=== PATIENT | male | born 1955 | race Caucasian/White ===

== ENCOUNTER 2024-07-05 19:40 | Inpatient (IN) | payer MEDICARE ==
[~2024-07-05] VITALS: Ht 177.8 cm; Wt 78.7 kg
[2024-07-05 20:25] LABS: BASO # 0.1 10^3/uL (0.0-0.2); BASO % 0.9 % (0.0-1.0); EOS # 0.3 10^3/uL (0.0-0.5); EOS % 4.7 % (0.0-3.0); HEMATOCRIT 38.1 % (42.0-52.0); HEMOGLOBIN 12.6 g/dl (13.5-17.5); LYMPH # 2.7 10^3/uL (1.5-5.0); LYMPH % 39.9 % (24.0-44.0); MEAN CORPUSCULAR HEMOGLOBIN 27.9 pg (27.0-33.0); MEAN CORPUSCULAR HGB CONC 33.1 g/dl (32.0-36.5); MEAN CORPUSCULAR VOLUME 84.3 fl (80.0-96.0); MONO # 0.3 10^3/uL (0.0-0.8); NEUTROPHILS # 3.4 10^3/uL (1.5-8.5); NEUTROPHILS % 50.2 % (36.0-66.0); PLATELET COUNT, AUTOMATED 240 10^3/uL (150-450); RED BLOOD COUNT 4.52 10^6/uL (4.30-6.10); WHITE BLOOD COUNT 6.8 10^3/uL (4.0-10.0)
[2024-07-05 20:47] LABS: CK-MB VALUE MASS 1.2 NG/ML (<3.6); LIPASE 35 U/L (12-53)
[2024-07-05 20:48] LABS: CPK CREATINE PHOSPHOKINASE 80 U/L (46-171)
[2024-07-05 20:51] LABS: THYROID STIMULATING HORMONE 2.664 uIU/ML (0.55-4.78)
[2024-07-05 21:12] LABS: ALBUMIN 3.3 G/DL (3.2-5.2); ALKALINE PHOSPHATASE 59 U/L (40-129); ALT/SGPT < 9 U/L (7.0-40); AST/SGOT 13 U/L (<34); BILIRUBIN,DIRECT 0.2 MG/DL (<0.4); BILIRUBIN,TOTAL 0.6 MG/DL (0.3-1.2); BLOOD UREA NITROGEN 12 MG/DL (9-23); CALCIUM LEVEL 7.4 MG/DL (8.3-10.6); CARBON DIOXIDE LEVEL 24 MMOL/L (20-31); CHLORIDE LEVEL 108 MMOL/L (98-107); CREATININE FOR GFR 0.73 MG/DL (0.70-1.30); GLOMERULAR FILTRATION RATE > 60.0 (>49); GLUCOSE, FASTING 99 MG/DL (74-106); POTASSIUM SERUM 3.3 MMOL/L (3.5-5.1); SODIUM LEVEL 141 MMOL/L (136-145); TOTAL PROTEIN 5.7 G/DL (5.7-8.2)
[2024-07-05] MEDS: POTASSIUM CHLORIDE 10% LIQ 20MEQ/15ML UDC PO ONE (21:29)
[2024-07-05] MEDS: NS (Normal Saline) 0.9% 1,000 ML IV ONE ×2 (21:50→23:38)
[2024-07-05 23:27] LABS: PROLACTIN 18.98 NG/ML (2.1-17.7)
[2024-07-05] MEDS: KETOROLAC 30 MG/ML 1ML VIAL IV ONE (23:38)
[2024-07-06 00:55] LABS: KETONE, URINE AUTO RFX NEGATIVE (NEGATIVE); LEUKOCYTE ESTERASE UR AUTO RFX NEGATIVE (NEGATIVE); MUCUS, URINE RFX SMALL (NEGATIVE); NITRITE, URINE AUTO RFX NEGATIVE (NEGATIVE); RBC, URINE AUTO RFX 0 /HPF (0-3); SQUAM EPITHELIAL CELL UR AURFX 0 /HPF (0-6); WBC, URINE AUTO RFX 0 /HPF (0-3)
[2024-07-06] MEDS: POTASSIUM CHLORIDE 10MEQ SR TABLET PO SCH (09:00)
[2024-07-06] MEDS ORDERED: HOME MED LIST COMPLETE! XX SCH (13:00)
[2024-07-06] MEDS ORDERED: MAALOX 30 ML SUSP *UDC PO PRN (13:40)
[2024-07-06] MEDS ORDERED: MOM 30ML SUSPENSION UDC PO PRN (13:40)
[2024-07-06 15:18] LABS: HEMATOCRIT 34.6 % (42.0-52.0)
[2024-07-06 15:49] LABS: MAGNESIUM LEVEL 1.8 MG/DL (1.8-2.4)
[2024-07-06 15:50] LABS: C REACTIVE PROTEIN QUANTITATIV 1.01 MG/DL (<1.0); PERCENT SATURATION 22.4 % (19.7-50.0)
[2024-07-06 15:52] LABS: TOTAL 25(OH) VITAMIN D 22.9 NG/ML (20.0-100.0)
[2024-07-06] MEDS: ACETAMINOPHEN 325 MG TAB PO PRN (16:25)
[2024-07-06 18:29] VITALS: BP 131/81; TEMP 97.7; O2SAT 99
[2024-07-06 20:27] VITALS: BP 123/80; TEMP 97.9; O2SAT 94
[2024-07-07 04:28] VITALS: BP 122/80; TEMP 97.2; O2SAT 98
[2024-07-07 07:35] LABS: BLOOD UREA NITROGEN 17 MG/DL (9-23); CALCIUM LEVEL 8.1 MG/DL (8.3-10.6); CARBON DIOXIDE LEVEL 26 MMOL/L (20-31); CHLORIDE LEVEL 108 MMOL/L (98-107); CREATININE FOR GFR 0.79 MG/DL (0.70-1.30); GLOMERULAR FILTRATION RATE > 60.0 (>49); GLUCOSE, FASTING 84 MG/DL (74-106); MAGNESIUM LEVEL 1.9 MG/DL (1.8-2.4); POTASSIUM SERUM 4.5 MMOL/L (3.5-5.1); SODIUM LEVEL 140 MMOL/L (136-145)
[2024-07-07] MEDS: ENOXAPARIN 40MG/0.4ML SYRINGE (J1650 PER 10MG) SC SCH (08:45)
[2024-07-07] MEDS ORDERED: CALCIUM CARBONATE 500 MG CHEW U/D PO PRN (09:00)
[2024-07-07] MEDS: GASTROGRAFIN SOLUTION 30ML PO SCH (10:22)
[2024-07-07 11:00] VITALS: BP 110/72; TEMP 97.2; O2SAT 97
[2024-07-07] MEDS ORDERED: ISOVUE-370 76% 100ML VIAL As Ordered ONE (11:56)
[2024-07-07 12:08] VITALS: BP 110/72; TEMP 97.2; O2SAT 97
[2024-07-07 20:41] VITALS: BP 122/78; TEMP 96.8; O2SAT 96
[2024-07-08] VITALS (11 sets, daily range): BP systolic 101–125; BP diastolic 65–78; TEMP 97–97.7; O2SAT 96–98
[2024-07-08] MEDS: FERROUS SULFATE 325MG TAB PO SCH (08:35)
[2024-07-08 12:21] LABS: IONIZED CALCIUM 4.6 MG/DL (4.5-5.3)
[2024-07-08] MEDS ORDERED: PROHANCE 279.3MG/ML 5ML VIAL As Ordered ONE (12:44)
[2024-07-08 12:52] LABS: PROLACTIN 22.64 NG/ML (2.1-17.7)
[2024-07-08 12:53] LABS: THYROXINE (T4) 4.8 UG/DL (4.5-10.9)
[2024-07-08 12:54] LABS: LUTEINIZING HORMONE 0.3 mIU/ML (1.5-9.3); THYROID STIMULATING HORMONE 2.698 uIU/ML (0.55-4.78)
[2024-07-08 12:57] LABS: FREE THYROXINE INDEX 1.5 % (1.4-3.8); T UPTAKE 31.6 % (22.5-37.0)
[2024-07-08 13:00] LABS: TESTOSTERONE < 7 NG/DL (241-827)
[2024-07-08 14:23] LABS: FREE T4 0.64 NG/DL (0.89-1.76)
[2024-07-08] MEDS: dexAMETHasone 20MG/5ML VIAL IV STA (15:37)
[2024-07-08] MEDS: NS (Normal Saline) 0.9% 1,000 ML IV ONE (15:44)
[2024-07-08] MEDS: MIDODRINE 5 MG TAB PO ONE (15:44)
[2024-07-08] MEDS: KETOROLAC 30 MG/ML 1ML VIAL IV ONE (16:41)
[2024-07-08] MEDS: PERCOCET 5MG/325MG TAB PO ONE (16:42)
[2024-07-09 05:01] VITALS: BP 111/72; TEMP 97.7; O2SAT 96
[2024-07-09] MEDS: COSYNTROPIN 0.25 MG/ML 1ML VIAL IV ONE (05:26)
[2024-07-09 06:16] LABS: BLOOD UREA NITROGEN 22 MG/DL (9-23); CALCIUM LEVEL 8.6 MG/DL (8.3-10.6); CARBON DIOXIDE LEVEL 23 MMOL/L (20-31); CHLORIDE LEVEL 111 MMOL/L (98-107); CREATININE FOR GFR 0.85 MG/DL (0.70-1.30); GLOMERULAR FILTRATION RATE > 60.0 (>49); GLUCOSE, FASTING 125 MG/DL (74-106); POTASSIUM SERUM 5.1 MMOL/L (3.5-5.1); SODIUM LEVEL 143 MMOL/L (136-145)
[2024-07-09 06:51] LABS: BASO % 0.2 % (0.0-1.0); HEMATOCRIT 36.5 % (42.0-52.0); HEMOGLOBIN 12.1 g/dl (13.5-17.5); MEAN CORPUSCULAR HEMOGLOBIN 27.9 pg (27.0-33.0); MEAN CORPUSCULAR HGB CONC 33.2 g/dl (32.0-36.5); MEAN CORPUSCULAR VOLUME 84.3 fl (80.0-96.0); MONO # 0.1 10^3/uL (0.0-0.8); MONO % 1.6 % (2.0-8.0); NEUTROPHILS # 5.3 10^3/uL (1.5-8.5); NEUTROPHILS % 81.9 % (36.0-66.0); PLATELET COUNT, AUTOMATED 267 10^3/uL (150-450); RED BLOOD COUNT 4.33 10^6/uL (4.30-6.10); WHITE BLOOD COUNT 6.5 10^3/uL (4.0-10.0)
[2024-07-09 07:00] VITALS: BP 113/67; TEMP 97.3
[2024-07-09 07:19] LABS: BLOOD UREA NITROGEN 22 MG/DL (9-23); CALCIUM LEVEL 8.5 MG/DL (8.3-10.6); CARBON DIOXIDE LEVEL 23 MMOL/L (20-31); CHLORIDE LEVEL 110 MMOL/L (98-107); CREATININE FOR GFR 0.81 MG/DL (0.70-1.30); GLOMERULAR FILTRATION RATE > 60.0 (>49); GLUCOSE, FASTING 120 MG/DL (74-106); SODIUM LEVEL 141 MMOL/L (136-145)
[2024-07-09] MEDS ORDERED: dexAMETHasone 20MG/5ML VIAL IV SCH (09:00)
[2024-07-09] MEDS ORDERED: HYDR10VL IV (09:08)
[2024-07-09] MEDS ORDERED: SYNT50TA IV (09:08)
[2024-07-09] MEDS: HYDROCORTISONE 100MG/2ML VIAL IV SCH (09:22)
[2024-07-09] MEDS: LEVOTHYROXINE 100MCG (0.1MG) 5ML SDV PF (SOLUTION FORM) IV SCH (10:36)
[2024-07-09] MEDS ORDERED: NALOXONE INJ 0.4MG/1ML VIAL IV PRN (14:05)
[2024-07-09] MEDS: LR 1,000 ML IV ONE (14:31)
[2024-07-09] MEDS: MORPHINE 10 MG/ML 1ML VIAL IV ONE (14:33)
[2024-07-09] MEDS: PERCOCET 5MG/325MG TAB PO PRN (19:55)
[2024-07-09 21:19] VITALS: BP 113/63; TEMP 97.7
[2024-07-10 04:00] VITALS: BP 113/71; TEMP 97.5; O2SAT 96
[2024-07-10 07:35] LABS: EOS % 0.1 % (0.0-3.0); HEMATOCRIT 32.9 % (42.0-52.0); HEMOGLOBIN 10.5 g/dl (13.5-17.5); LYMPH % 12.2 % (24.0-44.0); MEAN CORPUSCULAR HEMOGLOBIN 27.1 pg (27.0-33.0); MEAN CORPUSCULAR HGB CONC 31.9 g/dl (32.0-36.5); MEAN CORPUSCULAR VOLUME 84.8 fl (80.0-96.0); MONO # 0.2 10^3/uL (0.0-0.8); NEUTROPHILS # 7.2 10^3/uL (1.5-8.5); NEUTROPHILS % 84.9 % (36.0-66.0); PLATELET COUNT, AUTOMATED 237 10^3/uL (150-450); RED BLOOD COUNT 3.88 10^6/uL (4.30-6.10); WHITE BLOOD COUNT 8.5 10^3/uL (4.0-10.0)
[2024-07-10 07:56] LABS: BLOOD UREA NITROGEN 23 MG/DL (9-23); CALCIUM LEVEL 8.3 MG/DL (8.3-10.6); CARBON DIOXIDE LEVEL 25 MMOL/L (20-31); CHLORIDE LEVEL 113 MMOL/L (98-107); GLOMERULAR FILTRATION RATE > 60.0 (>49); GLUCOSE, FASTING 142 MG/DL (74-106); POTASSIUM SERUM 4.5 MMOL/L (3.5-5.1); SODIUM LEVEL 146 MMOL/L (136-145)
[2024-07-10 12:00] VITALS: BP 104/70; TEMP 97.7; O2SAT 96
[2024-07-10] MEDS: BISACODYL 5MG TAB PO ONE (15:20)
[2024-07-10] MEDS: GOLYTELY SOLN 4000 ML BTL PO ONE (17:23)
[2024-07-10 21:51] VITALS: BP 109/71; TEMP 97.9; O2SAT 96
[2024-07-11 04:37] VITALS: BP 111/79; TEMP 97.7; O2SAT 96
[2024-07-11] MEDS: MAGNESIUM CITRATE 300ML BTL PO ONE ×2 (05:31→09:13)
[2024-07-11 06:13] LABS: EOS % 0.3 % (0.0-3.0); HEMATOCRIT 30.6 % (42.0-52.0); LYMPH # 1.6 10^3/uL (1.5-5.0); LYMPH % 20.1 % (24.0-44.0); MEAN CORPUSCULAR HEMOGLOBIN 27.2 pg (27.0-33.0); MEAN CORPUSCULAR HGB CONC 32.7 g/dl (32.0-36.5); MEAN CORPUSCULAR VOLUME 83.2 fl (80.0-96.0); MONO # 0.2 10^3/uL (0.0-0.8); MONO % 2.7 % (2.0-8.0); NEUTROPHILS # 5.9 10^3/uL (1.5-8.5); NEUTROPHILS % 76.4 % (36.0-66.0); PLATELET COUNT, AUTOMATED 234 10^3/uL (150-450); RED BLOOD COUNT 3.68 10^6/uL (4.30-6.10); WHITE BLOOD COUNT 7.7 10^3/uL (4.0-10.0)
[2024-07-11 06:40] LABS: BLOOD UREA NITROGEN 20 MG/DL (9-23); CALCIUM LEVEL 7.9 MG/DL (8.3-10.6); CARBON DIOXIDE LEVEL 26 MMOL/L (20-31); CHLORIDE LEVEL 108 MMOL/L (98-107); CREATININE FOR GFR 0.67 MG/DL (0.70-1.30); GLOMERULAR FILTRATION RATE > 60.0 (>49); GLUCOSE, FASTING 110 MG/DL (74-106); POTASSIUM SERUM 3.9 MMOL/L (3.5-5.1); SODIUM LEVEL 142 MMOL/L (136-145)
[2024-07-11 09:00] VITALS: BP 132/92; TEMP 97.7
[2024-07-11 09:53] LABS: ANA SCREEN, IFA NEGATIVE (NEGATIVE)
[2024-07-11 10:43] LABS: INSULIN LEVEL 8.7 uIU/mL (<=18.4)
[2024-07-11 12:00] VITALS: BP 137/90; TEMP 97.3; O2SAT 96
[2024-07-11 16:06] LABS: ALDOLASE 3.1 U/L (< OR = 8.1)
[2024-07-11 20:14] VITALS: BP 133/88; TEMP 98.1; O2SAT 99
[2024-07-12 04:11] VITALS: BP 127/84; TEMP 97.7; O2SAT 98
[2024-07-12 07:13] LABS: BASO % 0.1 % (0.0-1.0); HEMATOCRIT 33.1 % (42.0-52.0); HEMOGLOBIN 10.8 g/dl (13.5-17.5); LYMPH # 1.4 10^3/uL (1.5-5.0); LYMPH % 17.3 % (24.0-44.0); MEAN CORPUSCULAR HEMOGLOBIN 27.8 pg (27.0-33.0); MEAN CORPUSCULAR HGB CONC 32.6 g/dl (32.0-36.5); MEAN CORPUSCULAR VOLUME 85.3 fl (80.0-96.0); MONO # 0.4 10^3/uL (0.0-0.8); NEUTROPHILS # 6.2 10^3/uL (1.5-8.5); NEUTROPHILS % 76.9 % (36.0-66.0); PLATELET COUNT, AUTOMATED 257 10^3/uL (150-450); RED BLOOD COUNT 3.88 10^6/uL (4.30-6.10)
[2024-07-12 07:35] LABS: BLOOD UREA NITROGEN 25 MG/DL (9-23); CALCIUM LEVEL 7.6 MG/DL (8.3-10.6); CARBON DIOXIDE LEVEL 27 MMOL/L (20-31); CHLORIDE LEVEL 109 MMOL/L (98-107); CREATININE FOR GFR 0.73 MG/DL (0.70-1.30); GLOMERULAR FILTRATION RATE > 60.0 (>49); GLUCOSE, FASTING 132 MG/DL (74-106); POTASSIUM SERUM 3.6 MMOL/L (3.5-5.1); SODIUM LEVEL 144 MMOL/L (136-145)
[2024-07-12 12:53] VITALS: BP 124/82; TEMP 97.7; O2SAT 97
[2024-07-12 16:27] LABS: HUMAN GROWTH HORMONE < 0.1 ng/mL (<=7.1)
[2024-07-12 20:20] VITALS: BP 124/82; TEMP 97.7; O2SAT 97
[2024-07-12 23:43] LABS: GASTRIN 15 pg/mL (<=100)
[2024-07-13 04:37] VITALS: BP 129/77; TEMP 97.5; O2SAT 97
[2024-07-13 06:51] LABS: BASO % 0.2 % (0.0-1.0); EOS % 0.4 % (0.0-3.0); HEMATOCRIT 32.7 % (42.0-52.0); HEMOGLOBIN 10.8 g/dl (13.5-17.5); LYMPH # 1.4 10^3/uL (1.5-5.0); LYMPH % 16.8 % (24.0-44.0); MEAN CORPUSCULAR HEMOGLOBIN 27.6 pg (27.0-33.0); MEAN CORPUSCULAR VOLUME 83.6 fl (80.0-96.0); MONO # 0.4 10^3/uL (0.0-0.8); MONO % 4.8 % (2.0-8.0); NEUTROPHILS # 6.5 10^3/uL (1.5-8.5); NEUTROPHILS % 75.6 % (36.0-66.0); PLATELET COUNT, AUTOMATED 263 10^3/uL (150-450); RED BLOOD COUNT 3.91 10^6/uL (4.30-6.10); WHITE BLOOD COUNT 8.6 10^3/uL (4.0-10.0)
[2024-07-13 07:14] LABS: BLOOD UREA NITROGEN 19 MG/DL (9-23); CALCIUM LEVEL 7.4 MG/DL (8.3-10.6); CARBON DIOXIDE LEVEL 25 MMOL/L (20-31); CHLORIDE LEVEL 106 MMOL/L (98-107); CREATININE FOR GFR 0.61 MG/DL (0.70-1.30); GLOMERULAR FILTRATION RATE > 60.0 (>49); GLUCOSE, FASTING 125 MG/DL (74-106); POTASSIUM SERUM 3.4 MMOL/L (3.5-5.1); SODIUM LEVEL 144 MMOL/L (136-145)
[2024-07-13] MEDS: HYDROCORTISONE 100MG/2ML VIAL IV SCH (09:25)
[2024-07-13 12:41] VITALS: BP 139/89; TEMP 97.7; O2SAT 98
[2024-07-13 16:38] LABS: ADRENOCORTICOTROPHIC HORMONE < 5 pg/mL (6-50)
[2024-07-13 19:38] VITALS: BP 109/79; TEMP 97.7; O2SAT 97
[2024-07-14 04:33] VITALS: BP 110/75; TEMP 96.4; O2SAT 97
[2024-07-14 07:19] LABS: BASO % 0.1 % (0.0-1.0); EOS % 0.4 % (0.0-3.0); LYMPH # 1.8 10^3/uL (1.5-5.0); LYMPH % 18.7 % (24.0-44.0); MEAN CORPUSCULAR HEMOGLOBIN 27.8 pg (27.0-33.0); MEAN CORPUSCULAR HGB CONC 32.4 g/dl (32.0-36.5); MEAN CORPUSCULAR VOLUME 86.1 fl (80.0-96.0); MONO # 0.6 10^3/uL (0.0-0.8); MONO % 6.5 % (2.0-8.0); NEUTROPHILS # 6.7 10^3/uL (1.5-8.5); NEUTROPHILS % 72.2 % (36.0-66.0); PLATELET COUNT, AUTOMATED 267 10^3/uL (150-450); RED BLOOD COUNT 3.95 10^6/uL (4.30-6.10); WHITE BLOOD COUNT 9.4 10^3/uL (4.0-10.0)
[2024-07-14 07:51] LABS: BLOOD UREA NITROGEN 26 MG/DL (9-23); CALCIUM LEVEL 7.3 MG/DL (8.3-10.6); CARBON DIOXIDE LEVEL 23 MMOL/L (20-31); CHLORIDE LEVEL 111 MMOL/L (98-107); CREATININE FOR GFR 0.83 MG/DL (0.70-1.30); GLOMERULAR FILTRATION RATE > 60.0 (>49); GLUCOSE, FASTING 129 MG/DL (74-106); SODIUM LEVEL 147 MMOL/L (136-145)
[2024-07-14 19:57] VITALS: BP 109/75; TEMP 97.7; O2SAT 97
[2024-07-15 04:46] VITALS: BP 115/66; TEMP 96.8; O2SAT 97
[2024-07-15 07:03] LABS: BASO % 0.4 % (0.0-1.0); EOS # 0.1 10^3/uL (0.0-0.5); EOS % 0.7 % (0.0-3.0); HEMATOCRIT 33.5 % (42.0-52.0); HEMOGLOBIN 11.1 g/dl (13.5-17.5); LYMPH % 20.1 % (24.0-44.0); MEAN CORPUSCULAR HEMOGLOBIN 28.2 pg (27.0-33.0); MEAN CORPUSCULAR HGB CONC 33.1 g/dl (32.0-36.5); MONO # 0.6 10^3/uL (0.0-0.8); MONO % 5.4 % (2.0-8.0); NEUTROPHILS # 7.2 10^3/uL (1.5-8.5); NEUTROPHILS % 70.5 % (36.0-66.0); PLATELET COUNT, AUTOMATED 270 10^3/uL (150-450); RED BLOOD COUNT 3.94 10^6/uL (4.30-6.10); WHITE BLOOD COUNT 10.2 10^3/uL (4.0-10.0)
[2024-07-15 07:31] LABS: BLOOD UREA NITROGEN 26 MG/DL (9-23); CALCIUM LEVEL 7.2 MG/DL (8.3-10.6); CARBON DIOXIDE LEVEL 25 MMOL/L (20-31); CHLORIDE LEVEL 113 MMOL/L (98-107); CREATININE FOR GFR 0.65 MG/DL (0.70-1.30); GLOMERULAR FILTRATION RATE > 60.0 (>49); GLUCOSE, FASTING 115 MG/DL (74-106); POTASSIUM SERUM 3.4 MMOL/L (3.5-5.1); SODIUM LEVEL 147 MMOL/L (136-145)
[2024-07-15 12:00] VITALS: BP 114/66; TEMP 96.8
[2024-07-15] MEDS ORDERED: GOLYTELY SOLN 4000 ML BTL PO ONE (16:00)
[2024-07-15] MEDS ORDERED: BISACODYL 5MG TAB PO ONE (17:00)
[2024-07-15 19:55] VITALS: BP 122/73; TEMP 97; O2SAT 98
[2024-07-15 23:55] VITALS: BP 121/74; TEMP 97.7; O2SAT 98
[2024-07-16] MEDS ORDERED: MAGNESIUM CITRATE 300ML BTL PO ONE (05:00)
== END 2024-07-16 01:05 | disposition short-term general hospital (02) | DRG 644 ==
LOC: M ED 19:40 → M ED INP 07-06 13:38 → M MS5PR 07-06 18:20
PROVIDERS: ADMIT Student in an Organized Health Care Education/Training Program; ATTEND Student in an Organized Health Care Education/Training Program
DX: E23.0 Hypopituitarism (principal); E22.1 Hyperprolactinemia; E46 Unspecified protein-calorie malnutrition; K52.9 Noninfective gastroenteritis and colitis, unspecified; E87.6 Hypokalemia; E83.51 Hypocalcemia; D35.2 Benign neoplasm of pituitary gland; D64.9 Anemia, unspecified; R53.1 Weakness; R53.81 Other malaise; M47.814 Spondylosis without myelopathy or radiculopathy, thoracic region; R63.4 Abnormal weight loss; R20.2 Paresthesia of skin; M25.561 Pain in right knee; M25.562 Pain in left knee; M79.605 Pain in left leg; M79.604 Pain in right leg; M47.816 Spondylosis without myelopathy or radiculopathy, lumbar region; D32.9 Benign neoplasm of meninges, unspecified; Z74.01 Bed confinement status; Z99.3 Dependence on wheelchair

== ENCOUNTER 2024-11-13 14:21 | Inpatient (IN) | payer MEDICARE, MEDICAID ==
[~2024-11-13] VITALS: Ht 177.8 cm; Wt 77.3 kg
[~2024-11-13 14:21] MED LIST: HYDR10VL IV; SYNT50TA IV
[2024-11-13 16:03] LABS: BASO # 0.0 10^3/uL (0.0-0.2); BASO % 0.5 % (0.0-1.0); EOS # 0.2 10^3/uL (0.0-0.5); EOS % 1.9 % (0.0-3.0); LYMPH # 2.5 10^3/uL (1.5-5.0); LYMPH % 31.7 % (24.0-44.0); MONO # 0.5 10^3/uL (0.0-0.8); MONO % 6.1 % (2.0-8.0); NEUTROPHILS # 4.6 10^3/uL (1.5-8.5); NEUTROPHILS % 59.0 % (36.0-66.0); PLATELET COUNT, AUTOMATED 241 10^3/uL (150-450)
[2024-11-13 16:25] LABS: CALCIUM LEVEL 9.0 MG/DL (8.3-10.6); CARBON DIOXIDE LEVEL 26 MMOL/L (20-31); CHLORIDE LEVEL 106 MMOL/L (98-107); CREATININE FOR GFR 0.84 MG/DL (0.70-1.30); GLOMERULAR FILTRATION RATE > 90.0 (>49); POTASSIUM SERUM 3.8 MMOL/L (3.5-5.1); SODIUM LEVEL 142 MMOL/L (136-145)
[2024-11-13 18:59] LABS: CK-MB VALUE MASS < 1.0 NG/ML (<3.6); MAGNESIUM LEVEL 1.9 MG/DL (1.8-2.4)
[2024-11-13 19:01] LABS: CPK CREATINE PHOSPHOKINASE 43 U/L (46-171)
[2024-11-13 19:03] LABS: FREE T4 0.96 NG/DL (0.89-1.76)
[2024-11-13 19:53] LABS: CK-MB VALUE MASS 1.1 NG/ML (<3.6)
[2024-11-13 19:55] LABS: CPK CREATINE PHOSPHOKINASE 52 U/L (46-171); MB/CK RELATIVE INDEX 2.11 (< OR =4)
[2024-11-13] MEDS ORDERED: LEVO50TA5 PO (21:27)
[2024-11-13] MEDS ORDERED: HYDR-4467 PO (21:27)
[2024-11-13] MEDS ORDERED: ERGO500029 PO (21:27)
[2024-11-13] MEDS ORDERED: HOME MED LIST COMPLETE! XX SCH (21:30)
[2024-11-14] MEDS ORDERED: MOM 30 ML SUSPENSION UDC PO PRN (00:15)
[2024-11-14] MEDS: HYDROCORTISONE 5 MG TABLET PO SCH (01:11)
[2024-11-14] MEDS: LEVOTHYROXINE 50 MCG TABLET (0.05 MG) PO SCH (06:18)
[2024-11-14] MEDS: DOCUSATE SODIUM 100 MG CAPSULE PO SCH (07:59)
[2024-11-14] MEDS: HEPARIN SOD 5000 UNITS/ML 1 ML VIAL/SYRINGE SC SCH (07:59)
[2024-11-14 15:58] VITALS: BP 127/85; TEMP 97.7; O2SAT 99
[2024-11-14] MEDS: ACETAMINOPHEN 325 MG TAB PO PRN (16:15)
[2024-11-14 21:00] VITALS: BP 140/80; TEMP 97.5; O2SAT 98
[2024-11-15 03:48] VITALS: BP 113/73; TEMP 97.3; O2SAT 99
[2024-11-15 08:46] VITALS: BP 145/99; TEMP 97.5; O2SAT 98
[2024-11-15 13:00] VITALS: BP 120/80; TEMP 97.9; O2SAT 98
[2024-11-15 20:16] VITALS: BP 120/81; TEMP 97.9; O2SAT 98
[2024-11-15] MEDS: CHLORASEPTIC SPRAY MT PRN (21:51)
[2024-11-16 03:14] VITALS: BP 121/81; TEMP 97.5; O2SAT 97
[2024-11-16] MEDS: CEPACOL LOZENGE PO PRN (09:59)
[2024-11-16 20:00] VITALS: BP 121/80; TEMP 97.9; O2SAT 97
[2024-11-17 04:58] VITALS: BP 124/78; TEMP 97.7; O2SAT 96
[2024-11-17 06:33] LABS: BASO # 0.1 10^3/uL (0.0-0.2); BASO % 0.9 % (0.0-1.0); EOS # 0.2 10^3/uL (0.0-0.5); EOS % 2.4 % (0.0-3.0); LYMPH # 2.6 10^3/uL (1.5-5.0); LYMPH % 39.1 % (24.0-44.0); MONO # 0.6 10^3/uL (0.0-0.8); MONO % 8.6 % (2.0-8.0); NEUTROPHILS # 3.2 10^3/uL (1.5-8.5); NEUTROPHILS % 48.1 % (36.0-66.0); PLATELET COUNT, AUTOMATED 261 10^3/uL (150-450)
[2024-11-17 07:07] LABS: ALT/SGPT 23.0 U/L (7.0-40); AST/SGOT 16.0 U/L (<34); CALCIUM LEVEL 8.8 MG/DL (8.3-10.6); CARBON DIOXIDE LEVEL 27.0 MMOL/L (20-31); CHLORIDE LEVEL 105.0 MMOL/L (98-107); CREATININE FOR GFR 0.96 MG/DL (0.70-1.30); GLOMERULAR FILTRATION RATE 86.6 (>49); POTASSIUM SERUM 4.5 MMOL/L (3.5-5.1); SODIUM LEVEL 144.0 MMOL/L (136-145)
[2024-11-17 12:00] VITALS: BP 122/79; TEMP 97.3; O2SAT 97
[2024-11-17] MEDS ORDERED: BENZ1LOZ9 PO (12:25)
[2024-11-17 14:48] VITALS: BP_SYST 103; BP_SYST 123; BP_DIAS 73; BP_DIAS 78
[2024-11-17] MEDS: HYDROCORTISONE 100 MG/2 ML VIAL IV ONE (16:00)
[2024-11-17] MEDS ORDERED: HYDROCORTISONE 10 MG TAB PO ONE (17:00)
[2024-11-17 20:45] VITALS: BP 108/72; TEMP 97.9; O2SAT 95
[2024-11-18 05:17] VITALS: BP 124/85; TEMP 97.7; O2SAT 96
[2024-11-18] MEDS: HYDROCORTISONE 10 MG TAB PO SCH (09:01)
[2024-11-18 12:00] VITALS: BP 121/81; TEMP 97.5; O2SAT 96
[2024-11-18 20:45] VITALS: BP 109/79; TEMP 97.9; O2SAT 94
[2024-11-19 04:21] VITALS: BP 132/81; TEMP 97.5; O2SAT 96
[2024-11-19] MEDS: LEVOTHYROXINE 75 MCG TABLET (0.075 MG) PO SCH (05:33)
[2024-11-19] MEDS: HYDROCORTISONE 10 MG TAB PO SCH ×2 (08:44→14:14)
[2024-11-19 12:00] VITALS: BP 113/77; TEMP 97.7; O2SAT 98
[2024-11-19 20:15] VITALS: BP 126/80; TEMP 97.9; O2SAT 98
[2024-11-20 04:34] VITALS: BP 132/84; TEMP 97.3; O2SAT 97
[2024-11-20 12:00] VITALS: BP 132/84; TEMP 97.3; O2SAT 96
[2024-11-20 12:51] VITALS: BP_SYST 103; BP_SYST 130; BP_DIAS 68; BP_DIAS 84; BP_DIAS 88
[2024-11-20 20:12] VITALS: BP 110/75; TEMP 97.2; O2SAT 97
[2024-11-21] MEDS: MAALOX 30 ML SUSP *UDC PO PRN (02:22)
[2024-11-21 04:00] VITALS: BP 117/77; TEMP 96.8; O2SAT 96
[2024-11-21] MEDS ORDERED: HYDR-4468 PO (10:12)
[2024-11-21] MEDS ORDERED: LEVO75TA4 PO (10:12)
[2024-11-21 12:00] VITALS: BP 117/77; TEMP 96.8; O2SAT 96
== END 2024-11-21 18:15 | disposition home health service (06) | DRG 644 ==
LOC: M ED 14:21 → EDBD 14:21 → M ED INP 11-14 00:15 → M MSPAV 11-14 13:50
PROVIDERS: ADMIT Student in an Organized Health Care Education/Training Program; ATTEND Internal Medicine Nephrology
PROC: B246ZZZ Ultrasonography of Right and Left Heart (ICD-10-PCS; principal; 2024-11-15)
DX: E23.0 Hypopituitarism (principal); E27.40 Unspecified adrenocortical insufficiency; D35.2 Benign neoplasm of pituitary gland; K52.9 Noninfective gastroenteritis and colitis, unspecified; R32 Unspecified urinary incontinence; R15.9 Full incontinence of feces; M79.18 Myalgia, other site; G89.29 Other chronic pain; R26.81 Unsteadiness on feet; E03.9 Hypothyroidism, unspecified; I95.1 Orthostatic hypotension; R29.6 Repeated falls; Z99.3 Dependence on wheelchair; Z79.890 Hormone replacement therapy; Z79.899 Other long term (current) drug therapy

== ENCOUNTER 2025-01-08 12:24 | Emergency (ER) | payer MEDICARE, MEDICAID ==
[~2025-01-08 12:24] MED LIST changes: +BENZ1LOZ9 PO; +ERGO500029 PO; +HYDR-4467 PO; +HYDR-4468 PO; +LEVO50TA5 PO; +LEVO75TA4 PO
[2025-01-08 12:48] LABS: BASO # 0.1 10^3/uL (0.0-0.2); BASO % 0.8 % (0.0-1.0); EOS # 0.2 10^3/uL (0.0-0.5); EOS % 2.0 % (0.0-3.0); LYMPH # 3.4 10^3/uL (1.5-5.0); LYMPH % 38.3 % (24.0-44.0); MONO # 0.5 10^3/uL (0.0-0.8); MONO % 5.6 % (2.0-8.0); NEUTROPHILS # 4.7 10^3/uL (1.5-8.5); NEUTROPHILS % 52.5 % (36.0-66.0); PLATELET COUNT, AUTOMATED 225 10^3/uL (150-450)
[2025-01-08 13:24] LABS: ALT/SGPT 33.0 U/L (7.0-40); AST/SGOT 13.0 U/L (<34); CALCIUM LEVEL 10.0 MG/DL (8.3-10.6); CARBON DIOXIDE LEVEL 27.0 MMOL/L (20-31); CHLORIDE LEVEL 106.0 MMOL/L (98-107); CREATININE FOR GFR 0.98 MG/DL (0.70-1.30); GLOMERULAR FILTRATION RATE 84.5 (>49); POTASSIUM SERUM 4.2 MMOL/L (3.5-5.1); SODIUM LEVEL 144.0 MMOL/L (136-145)
[2025-01-08] MEDS ORDERED: LEVO75TA4 PO (13:31)
[2025-01-08] MEDS ORDERED: HYDR-4468 PO ×2 (13:31)
[2025-01-08] MEDS ORDERED: HOME MED LIST COMPLETE! XX SCH (13:35)
[2025-01-08 15:31] VITALS: BP 119/74; O2SAT 97
[2025-01-08 15:52] VITALS: TEMP 97.2
== END 2025-01-08 17:00 | disposition home or self-care (01) ==
LOC: M ED 12:24 → EDBD 12:24 → M ED 17:00
DX: R42 Dizziness and giddiness (principal); I95.1 Orthostatic hypotension; Z79.899 Other long term (current) drug therapy

== ENCOUNTER 2025-03-04 13:19 | Inpatient (IN) | payer MEDICARE, MEDICAID ==
[~2025-03-04] VITALS: Ht 177.8 cm; Wt 85.8 kg
[2025-03-04 14:17] LABS: BASO # 0.1 10^3/uL (0.0-0.2); BASO % 0.6 % (0.0-1.0); EOS # 0.2 10^3/uL (0.0-0.5); EOS % 1.8 % (0.0-3.0); LYMPH # 4.6 10^3/uL (1.5-5.0); LYMPH % 41.9 % (24.0-44.0); MONO # 0.6 10^3/uL (0.0-0.8); MONO % 5.1 % (2.0-8.0); NEUTROPHILS # 5.5 10^3/uL (1.5-8.5); NEUTROPHILS % 50.1 % (36.0-66.0); PLATELET COUNT, AUTOMATED 302 10^3/uL (150-450)
[2025-03-04 14:26] LABS: ALT/SGPT 25.0 U/L (7.0-40); AST/SGOT 16.0 U/L (<34); CALCIUM LEVEL 9.7 MG/DL (8.3-10.6); CARBON DIOXIDE LEVEL 25.0 MMOL/L (20-31); CHLORIDE LEVEL 104.0 MMOL/L (98-107); CREATININE FOR GFR 0.96 MG/DL (0.70-1.30); GLOMERULAR FILTRATION RATE 86.6 (>49); POTASSIUM SERUM 3.5 MMOL/L (3.5-5.1); SODIUM LEVEL 140.0 MMOL/L (136-145)
[2025-03-04 17:06] LABS: FREE T4 1.02 NG/DL (0.89-1.76)
[2025-03-04] MEDS ORDERED: NS (Normal Saline) 0.9% 1,000 ML IV ONE (17:45)
[2025-03-04] MEDS: NS 0.9% IV STA (18:09)
[2025-03-04] MEDS: [UNRECOGNIZED DRUG - OTHER] IV STA (18:09)
[2025-03-04] MEDS: PIPERACILLIN/TAZOBACTAM SOD 4.5 GM in DEXTROSE 5% (D5W) ADV/MINI-BAG 50 ML IV ONE (18:49)
[2025-03-04 19:32] LABS: KETONE, URINE AUTO RFX NEGATIVE (NEGATIVE); LEUKOCYTE ESTERASE UR AUTO RFX NEGATIVE (NEGATIVE); MUCUS, URINE RFX SMALL (NEGATIVE); NITRITE, URINE AUTO RFX NEGATIVE (NEGATIVE); RBC, URINE AUTO RFX 12 /HPF (0-3); SQUAM EPITHELIAL CELL UR AURFX 0 /HPF (0-6); WBC, URINE AUTO RFX 3 /HPF (0-3)
[2025-03-04] MEDS: VANCOMYCIN HCL 1,000 MG, VIAL MATE ADAPTER 1 EACH in NS 250 ML IV ONE (19:49)
[2025-03-04] MEDS ORDERED: MOM 30 ML SUSPENSION UDC PO PRN (23:00)
[2025-03-04] MEDS ORDERED: ACETAMINOPHEN 325 MG TAB PO PRN (23:00)
[2025-03-04] MEDS ORDERED: MAALOX 30 ML SUSP *UDC PO PRN (23:00)
[2025-03-05] MEDS: HYDROCORTISONE 100 MG/2 ML VIAL IV ONE (00:28)
[2025-03-05 07:12] LABS: PLATELET COUNT, AUTOMATED 264 10^3/uL (150-450)
[2025-03-05 07:32] LABS: ALT/SGPT 22.0 U/L (7.0-40); AST/SGOT 13.0 U/L (<34); CALCIUM LEVEL 8.9 MG/DL (8.3-10.6); CARBON DIOXIDE LEVEL 22.0 MMOL/L (20-31); CHLORIDE LEVEL 106.0 MMOL/L (98-107); CREATININE FOR GFR 0.98 MG/DL (0.70-1.30); GLOMERULAR FILTRATION RATE 84.5 (>49); POTASSIUM SERUM 4.3 MMOL/L (3.5-5.1); SODIUM LEVEL 139.0 MMOL/L (136-145)
[2025-03-05] MEDS: DOCUSATE SODIUM 100 MG CAPSULE PO SCH (08:42)
[2025-03-05] MEDS ORDERED: HOME MED LIST COMPLETE! XX SCH (10:00)
[2025-03-05 13:53] VITALS: BP 134/73; TEMP 97.2; O2SAT 99
[2025-03-05 15:40] VITALS: BP 123/69; TEMP 96.6; O2SAT 97
[2025-03-05] MEDS: HYDROCORTISONE 100 MG/2 ML VIAL IV SCH (20:12)
[2025-03-05 20:27] VITALS: BP 121/66; TEMP 98.1; O2SAT 96
[2025-03-05 23:47] VITALS: BP 115/66; TEMP 97.2; O2SAT 96
[2025-03-06 03:40] VITALS: BP 128/69; TEMP 97.5; O2SAT 98
[2025-03-06] MEDS: LEVOTHYROXINE 75 MCG TABLET (0.075 MG) PO SCH (05:23)
[2025-03-06 08:02] VITALS: BP 112/71; TEMP 96.5; O2SAT 95
[2025-03-06 09:20] LABS: PLATELET COUNT, AUTOMATED 218 10^3/uL (150-450)
[2025-03-06 09:27] LABS: CALCIUM LEVEL 8.2 MG/DL (8.3-10.6); CARBON DIOXIDE LEVEL 24.0 MMOL/L (20-31); CHLORIDE LEVEL 107.0 MMOL/L (98-107); CREATININE FOR GFR 0.99 MG/DL (0.70-1.30); GLOMERULAR FILTRATION RATE 83.5 (>49); POTASSIUM SERUM 3.9 MMOL/L (3.5-5.1); SODIUM LEVEL 140.0 MMOL/L (136-145)
[2025-03-06] MEDS: MIDODRINE 2.5 MG TAB PO SCH (10:11)
[2025-03-06 16:14] VITALS: BP 101/64; TEMP 96.4; O2SAT 96
[2025-03-06 19:59] VITALS: BP 115/70; TEMP 98.7; O2SAT 97
[2025-03-07] VITALS (7 sets, daily range): BP systolic 117–144; BP diastolic 67–84; TEMP 97.1–97.9; O2SAT 96–98
[2025-03-07 05:38] LABS: PLATELET COUNT, AUTOMATED 231 10^3/uL (150-450)
[2025-03-07 06:05] LABS: CALCIUM LEVEL 8.2 MG/DL (8.3-10.6); CARBON DIOXIDE LEVEL 23.0 MMOL/L (20-31); CHLORIDE LEVEL 107.0 MMOL/L (98-107); CREATININE FOR GFR 1.01 MG/DL (0.70-1.30); GLOMERULAR FILTRATION RATE 81.5 (>49); POTASSIUM SERUM 3.6 MMOL/L (3.5-5.1); SODIUM LEVEL 141.0 MMOL/L (136-145)
[2025-03-07] MEDS: LEVOTHYROXINE 88 MCG TABLET (0.088 MG) PO SCH (06:08)
[2025-03-07] MEDS: HYDROCORTISONE 5 MG TABLET PO SCH (07:09)
[2025-03-07] MEDS: HYDROCORTISONE 10 MG TAB PO SCH (07:09)
[2025-03-08] VITALS (7 sets, daily range): BP systolic 120–154; BP diastolic 68–77; TEMP 97–98; O2SAT 95–98
[2025-03-08 05:18] LABS: PLATELET COUNT, AUTOMATED 245 10^3/uL (150-450)
[2025-03-08 05:44] LABS: CALCIUM LEVEL 8.2 MG/DL (8.3-10.6); CARBON DIOXIDE LEVEL 24 MMOL/L (20-31); CHLORIDE LEVEL 107 MMOL/L (98-107); CREATININE FOR GFR 0.88 MG/DL (0.70-1.30); GLOMERULAR FILTRATION RATE > 90.0 (>49); POTASSIUM SERUM 3.8 MMOL/L (3.5-5.1); SODIUM LEVEL 139 MMOL/L (136-145)
[2025-03-08] MEDS: HYDROCORTISONE 10 MG TAB PO SCH ×2 (06:25→17:21)
[2025-03-09 04:19] VITALS: BP 115/66; TEMP 97.3; O2SAT 96
[2025-03-09 05:51] LABS: PLATELET COUNT, AUTOMATED 244 10^3/uL (150-450)
[2025-03-09 06:08] LABS: ADRENOCORTICOTROPHIC HORMONE < 5 pg/mL (6-50)
[2025-03-09 06:16] LABS: CALCIUM LEVEL 8.4 MG/DL (8.3-10.6); CARBON DIOXIDE LEVEL 24.0 MMOL/L (20-31); CHLORIDE LEVEL 111.0 MMOL/L (98-107); CREATININE FOR GFR 1.01 MG/DL (0.70-1.30); GLOMERULAR FILTRATION RATE 81.5 (>49); POTASSIUM SERUM 3.6 MMOL/L (3.5-5.1); SODIUM LEVEL 147.0 MMOL/L (136-145)
[2025-03-09 07:47] VITALS: BP 126/80; TEMP 97; O2SAT 94
[2025-03-09 08:52] VITALS: BP 126/80
[2025-03-09 12:17] VITALS: BP 115/66; TEMP 97.3; O2SAT 94
[2025-03-09] MEDS ORDERED: HYDR-4468 PO (12:30)
[2025-03-09] MEDS ORDERED: LEVO88TA3 PO (12:30)
[2025-03-09] MEDS ORDERED: MIDO2.5T3 PO (12:30)
[2025-03-09 23:07] LABS: HUMAN GROWTH HORMONE < 0.1 ng/mL (<=7.1)
== END 2025-03-09 14:05 | disposition home or self-care (01) | DRG 644 ==
LOC: M ED 13:19 → M ED INP 13:20 → OBSVTOIN 03-05 13:19 → M PCU 03-05 13:43
PROVIDERS: ADMIT Student in an Organized Health Care Education/Training Program; ATTEND Student in an Organized Health Care Education/Training Program
DX: E23.0 Hypopituitarism (principal); G91.9 Hydrocephalus, unspecified; K52.9 Noninfective gastroenteritis and colitis, unspecified; R32 Unspecified urinary incontinence; R15.9 Full incontinence of feces; M79.18 Myalgia, other site; Z99.3 Dependence on wheelchair; I95.1 Orthostatic hypotension; D35.2 Benign neoplasm of pituitary gland; Z79.890 Hormone replacement therapy; Z79.899 Other long term (current) drug therapy; E03.8 Other specified hypothyroidism; R26.89 Other abnormalities of gait and mobility